=== PATIENT | female | born 1980 | race Caucasian/White ===

== ENCOUNTER 2023-05-04 21:21 | Emergency (ER) | payer OTHER, SELFPAY ==
[2023-05-04 21:28] VITALS: BP 156/97; PULSE 86; RESP 18; TEMP 36.8; O2SAT 97; BMI 22.8
--- NOTE | 2023-05-04 21:38 | ED.HA ---
HPI - Headache General Chief Complaint: Headache/Migraine Stated Complaint: Headaches Time Seen by Provider: 05/04/23 21:22 History of Present Illness HPI Narrative: Patient is a 42-year-old woman who presents with a refractory headache. Headache is generalized. She has had no fevers no chills no stiff neck no symptoms of meningitis. She does not have chronic headache disorder but has had chronic daily headaches for last several days. She has photophobia but no other neurologic symptoms. She has had no aura. She has had no recent trauma. No other concerns are noted she otherwise feels well. The headache is diffuse and 10 of 10. She has no other complaints or concerns. Related Data Allergies Allergy/AdvReac Type Severity Reaction Status Date / Time Penicillins Allergy Verified 05/04/23 21:27 Review of Systems Status of ROS: Reports: 10 or more systems reviewed and unremarkable except as noted in History and below [facility] Social History Smoking Status: Current every day smoker What tobacco products do you use: cigarettes Smoking packs per day: 0.5 Smoking cigarettes per day: 10.0 Years smoked: 20 Smoking pack-years: 10.00 Do you use any of these nicotine containing products: None Second hand tobacco smoke exposure: No How often do you have a drink containing alcohol: 4 or more times a week How many standard drinks containing alcohol do you have on a typical day: 3 or 4 How often do you have six or more drinks on one occasion: Weekly AUDIT-C Alcohol total score: 8 Non-prescribed substance use: denies use service: No Exam Narrative: Exam Narrative: EXAM GENERAL: Patient appears photophobic but no other neurologic symptoms noted. EYES: No scleral icterus. LYMPH: No supraclavicular or cervical lymphadenopathy. SKIN: Visible skin seen during exam normal or with benign process only. EXT: No dependent lower extremity pedal edema. HEART: Regular rate and rhythm with no murmurs, rubs, or gallops. LUNGS: Clear to auscultation bilaterally with no crackles or wheezes. ABD: Soft, non tender, non distended. PSYCH: Good eye contact, speech is not pressured. Neurologic cranial nerves 2-12 grossly intact no focal defects. Const: Vital Signs, click to edit/add: Vital Signs - 24 hr 05/04/23 21:28 Temperature 98.3 F Pulse Rate [Pulse Oximeter] 86 Respiratory Rate 18 Blood Pressure [Le ft Upper Arm] 156/97 H Pulse Oximetry 97 Oxygen Delivery Me thod Room Air Course Course Hospital Course: Patient seen examined. Vital Signs Vital signs: Initial Vital Signs Temperature 98.3 F 05/04/23 21:28 Temperature Source Temporal Artery Scan 05/04/23 21:28 Pulse Rate 86 05/04/23 21:28 Pulse Rhythm Regular 05/04/23 21:28 Respiratory Rate 18 05/04/23 21:28 Blood Pressure 156/97 H 05/04/23 21:28 Blood Pressure Mean 116 H 05/04/23 21:28 Blood Pressure Position Supine 05/04/23 21:28 Pulse Oximetry 97 05/04/23 21:28 Oxygen Delivery Method Room Air 05/04/23 21:28 Vital Signs Temperature 98.3 F 05/04/23 21:28 Pulse Rate 86 05/04/23 21:28 Respiratory Rate 18 05/04/23 21:28 Blood Pressure 156/97 H 05/04/23 21:28 Pulse Oximetry 97 05/04/23 21:28 Oxygen Delivery Method Room Air 05/04/23 21:28 Temperature 98.3 F 05/04/23 21:28 Pulse Rate 86 05/04/23 21:28 Respiratory Rate 18 05/04/23 21:28 Blood Pressure 156/97 H 05/04/23 21:28 Pulse Oximetry 97 05/04/23 21:28 Oxygen Delivery Method Room Air 05/04/23 21:28 MDM - Headache MDM Narrative Medical decision making narrative: Patient is a 42-year-old woman who has developed chronic daily headache for last several days. He has appear to be tension headaches. She has no focal neurologic defects on exam. He is treated with normal saline 1 L 4 mg of Zofran 30 mg of Toradol 50 mg of IV Benadryl. She is encouraged to rest continue outpatient management follow-up with her primary physician next week. Differential Diagnosis Differential diagnosis: Likely migraine, tension headache, subarachnoid hemorrhage, headache, meningitis and sinusitis Discharge Plan Discharge Clinical Impression: Headache Patient Disposition: Home, Self-Care Condition: Stable Instructions: Acute Headache (ED) Additional Instructions: Continue home medication with Tylenol Motrin Rest Fluids Follow up with her doctor this week. Activity Level: No Restrictions Discharge Diet: Regular Follow Up/Referrals: Atiya Mcdaniels MD [Primary Care Provider] - Stand Alone Forms: [employer] Info Instructions
[2023-05-04 21:40] VITALS: BP 140/88; RESP 76; O2SAT 99
[2023-05-04] MEDS: 0.9 % SODIUM CHLORIDE 1000 ml 1,000 ML IV (21:54)
[2023-05-04] MEDS: ONDANSETRON 2 MG/ML inj 4 MG IVP (21:55)
[2023-05-04] MEDS: KETOROLAC 30 MG/ML inj IVP (21:56)
[2023-05-04] MEDS: diphenhydrAMINE 50 MG/ML inj IVP (21:58)
--- NOTE | 2023-05-04 22:04 | CRLHL7_ITS ---
For Patients: As a result of the Century Cures Act, medical imaging exams and procedure reports are released immediately into your electronic medical record. You may view this report before your referring provider. If you have questions, please contact your health care provider. INDICATION: Headache. TECHNIQUE: CT head without contrast. Permanently recorded images are archived. COMPARISON: None. FINDINGS: CSF spaces: Within normal limits for age. Cavum septum pellucidum Brain parenchyma and extra-axial spaces: The castanon-white differentiation is normal. No sign of mass, hemorrhage, or midline shift. No extra-axial fluid collection. Skull base and calvarium: The visualized paranasal sinuses demonstrate no acute or significant findings. The mastoid air cells are clear. The visualized orbits are grossly unremarkable. No skull fractures. IMPRESSION: No evidence of an acute intracranial abnormality. Unremarkable noncontrast head CT. Please note that all CT scans at this facility use dose modulation, iterative reconstruction, and/or weight-based dosing when appropriate to reduce radiation dose to as low as reasonably achievable. Dictated by Juan David Alexander MD @ 05/04/2023 11:13:45 PM (Electronically Signed)
--- NOTE | 2023-05-04 22:57 | ED.NURSE ---
reports that the shooting pain is gone but the pressure still remains. pain 6/10. has been resting. awaiting ct scan results.
== END 2023-05-04 23:28 | disposition home or self-care (01) ==
PROVIDERS: Emergency Provider Internal Medicine; PCP Family Medicine
DX: R51.9 Headache, unspecified (principal)
CPT/HCPCS: 70450; 96374; 96375; 99283; 99284; J1200; J1885; J2405; J7030